=== PATIENT | male | born 1990 | race Caucasian/White ===

== ENCOUNTER 2020-08-25 02:11 | Emergency (ER) | payer SELFPAY ==
[~2020-08-25] VITALS: Ht 172.7 cm; Wt 65.8 kg
[2020-08-25 02:17] VITALS: BP 122/68
[2020-08-25] MEDS ORDERED: FLUORESCEIN SODIUM OPHTH 1 EA STRIP ONE (02:22)
[2020-08-25] MEDS ORDERED: ERYTHROMYCIN BASE OPHTH 3.5 GM TUBE ONE (02:53)
[2020-08-25] MEDS ORDERED: ERYTHROMYCIN BASE OPHTH 3.5 GM TUBE OP ONE (03:00)
[2020-08-25] MEDS ORDERED: HYDROCODONE/APAP 10/325MG TABLET PO ONE (03:00)
[2020-08-25] MEDS ORDERED: HYDROCODONE/APAP 10/325MG TABLET ONE (03:02)
[2020-08-25] MEDS ORDERED: TRAM50TA2 PO (03:11)
[2020-08-25] MEDS ORDERED: ERYT3.5O9 EACHEYE (03:11)
== END 2020-08-25 03:28 | disposition home or self-care (01) ==
LOC: ER 02:18
DX: T26.12XA Burn of cornea and conjunctival sac, left eye, initial encounter (principal); T26.11XA Burn of cornea and conjunctival sac, right eye, initial encounter; X08.8XXA Exposure to other specified smoke, fire and flames, initial encounter; Y93.89 Activity, other specified; Y92.89 Other specified places as the place of occurrence of the external cause; Y99.8 Other external cause status